=== PATIENT | female | born 1975 | race African-American/Black ===

== ENCOUNTER 2016-10-25 22:16 | Emergency (ER) | payer OTHER ==
[~2016-10-25] VITALS: Ht 157.5 cm; Wt 118.8 kg
[~2016-10-25 22:16] MED LIST: HYCODAN SYRUP480 ML PO; ZYRTEC-D1 TABLE1 PO
[2016-10-26] LABS: HEMATOCRIT 36.2 % (36.0-46.0); MCH 26.2 PG (29.0-34.0); MCHC 31.8 G/DL (30.0-36.0); MCV 82.5 FL (83-99); MEAN PLAT.VOLUME 11.4 uM^3 (9.5-12.4); PLATELET COUNT 248 K/uL (156-360); RBC DIS.WIDTH-CV 14.3 % (11.8-14.6); RBC DIS.WIDTH-SD 42.8 % (39-53); RED BLOOD COUNT 4.39 M/uL (3.80-5.20); WHITE BLOOD COUNT 8.5 K/uL (4.1-10.2)
[2016-10-26] MEDS ORDERED: AZITHROMYCIN250 MG PO (00:05)
[2016-10-26] MEDS ORDERED: VENTOLIN HFA18 GM IH (00:05)
[2016-10-26] MEDS ORDERED: HYCODAN SYRUP480 ML PO (00:05)
[2016-10-26 00:18] LABS: CHLORIDE 107 mEq/L (99-109); POTASSIUM 3.9 mEq/L (3.7-5.4); SODIUM 140 mEq/L (136-147)
[2016-10-26 00:19] LABS: GLUCOSE 99 mg/dL (70-99)
[2016-10-26 00:21] LABS: ANION GAP 8 MEQ/L (2-14)
[2016-10-26 00:23] LABS: GFR ESTIMATE (CALCULATED) > 59 mL/min/
[2016-10-26 00:24] LABS: UREA NITROGEN (BUN) 13 mg/dL (9-23)
[2016-10-26 01:09] VITALS: BP 102/64
== END 2016-10-26 01:12 | disposition home or self-care (01) ==
LOC: EME 22:16
DX: J20.9 Acute bronchitis, unspecified (principal)
CPT/HCPCS: 71020; 80048; 85027; 94640; 99281; 99284